=== PATIENT | male | born 1975 | race African-American/Black ===

== ENCOUNTER 2018-01-22 08:13 | Emergency (ER) | payer OTHER ==
[~2018-01-22] VITALS: Ht 185.4 cm; Wt 105.0 kg
[~2018-01-22 08:13] MED LIST: AMOXICILLIN500 MG PO; AUGMENTIN875TAB PO; AZITHROMYCIN250 MG PO; CIPRO500 MG PO; CLOBETASOL0.053 EX; CORTISPORIN OTI10 ML AD; DOXYCYCL HYC100 MG OR; DOXYCYCL HYC100 MG PO; LORTAB 5 OR; NO HOME MEDS; ROCEPHIN 1 GM1 GM IM; ROCEPHIN 2250 MG/VIA IM; SOLU-MEDROL125 MG IM; TOBRAMYCIN0.3 % OU; VIGAMOX OD; ZITHROMAX500 MG PO
[2018-01-22] MEDS ORDERED: FLEXERIL PO (13:12)
[2018-01-22] MEDS ORDERED: NAPROSYN500 MG PO (13:12)
[2018-01-22 14:00] VITALS: BP 127/82
== END 2018-01-22 14:00 | disposition home or self-care (01) | DRG 552 ==
LOC: ED 08:13
DX: S13.9XXA Sprain of joints and ligaments of unspecified parts of neck, initial encounter (principal); S33.5XXA Sprain of ligaments of lumbar spine, initial encounter; V49.40XA Driver injured in collision with unspecified motor vehicles in traffic accident, initial encounter